=== PATIENT | female | born 1985 | race Two or more races ===

== ENCOUNTER 2024-02-01 16:42 | Inpatient (IN) | payer MEDICAID ==
[~2024-02-01] VITALS: Ht 152.4 cm; Wt 89.4 kg
[2024-02-01 16:49] VITALS: O2SAT 99
[2024-02-01] MEDS: VANCOMYCIN 1G PREMIX 200 ML IV ONE (17:15)
[2024-02-01 17:22] LABS: BASOPHILS % 0.3 % (0.0-2.0); EOSINOPHILS % 2.4 % (0.0-5.0); HEMATOCRIT. 34.1 % (36.0-48.0); HEMOGLOBIN. 11.4 g/dL (12.0-16.0); LYMPHOCYTES % 22.5 % (20.0-50.0); MEAN CORPUSCULAR HEMOGLOBIN 31.1 pg (28.0-32.0); MEAN CORPUSCULAR HGB CONC 33.5 g/dL (31.0-37.0); MEAN CORPUSCULAR VOLUME 92.9 fL (81.0-99.0); MEAN PLATELET VOLUME 7.7 fl (7.4-10.4); MONOCYTES % 6.6 % (2.0-8.0); NEUTROPHILS % 68.2 % (40.0-76.0); PLATELET 409 x1000/uL (130-400); RED BLOOD CELL COUNT 3.67 mill/uL (4.2-5.4); RED CELL DISTRIBUTION WIDTH 13.1 % (11.6-14.6); WHITE BLOOD COUNT 7.6 x1000/uL (4.5-11.0)
[2024-02-01 17:35] LABS: PROTHROMBIN TIME 11.1 sec (9.6-11.0)
[2024-02-01 17:39] LABS: ALANINE AMINOTRANSFERASE 42 IU/L (10-49); ASPARTATE AMINOTRANSFERASE 20 IU/L (<34); BILIRUBIN TOTAL 0.3 mg/dL (0.1-1.0); CALCIUM 8.6 mg/dL (8.7-10.4); CARBON DIOXIDE 27 mEq/L (21-32); CHLORIDE 103 mEq/L (98-107); CREATININE 0.5 mg/dL (0.6-1.0); GLUCOSE 99 mg/dL (70-105); POTASSIUM 3.3 mEq/L (3.5-5.1); PROTEIN TOTAL 7.5 g/dL (6.0-8.3); SODIUM 138 mEq/L (136-145); UREA NITROGEN BLOOD 9 mg/dL (9-23)
[2024-02-01] MEDS: SODIUM CHLORIDE 0.9% 1000ML BAG (SEPSIS BOLUS) IV ONE (19:07)
[2024-02-01] MEDS: CEFTRIAXONE 1GM/50ML 50 ML IV ONE (19:08)
[2024-02-01] MEDS ORDERED: CLONIDINE 0.1MG TABLET PO PRN (23:00)
[2024-02-01] MEDS: POTASSIUM CHLORIDE 20MEQ TABLET SR PO NR (23:00)
[2024-02-01] MEDS ORDERED: ACETAMINOPHEN 325MG TABLET PO PRN (23:00)
[2024-02-01] MEDS ORDERED: ZOLPIDEM TARTRATE 5MG TABLET PO PRN (23:00)
[2024-02-02] MEDS: ACETAMINOPHEN 325MG TABLET PO PRN (03:09)
[2024-02-02] MEDS: ENOXAPARIN 30MG/0.3ML SYR SUBCUT SCH (09:00)
[2024-02-02 12:00] VITALS: BP 125/62; PULSE 82; RESP 18; TEMP 97
[2024-02-02 16:49] LABS: CLARITY URINE TURBID (CLEAR); COLOR URINE YELLOW (YELLOW); GLUCOSE URINE NEGATIVE (NEGATIVE); KETONES URINE NEGATIVE (NEGATIVE); LEUKOCYTE ESTERASE URINE NEGATIVE (NEGATIVE); NITRITE URINE NEGATIVE (NEGATIVE); OCCULT BLOOD URINE NEGATIVE (NEGATIVE); PROTEIN URINE NEGATIVE (NEGATIVE); SPECIFIC GRAVITY URINE 1.018 (1.005-1.030)
[2024-02-02 16:57] LABS: *AMPHETAMINES SCREEN URINE PRESUMPTIVE POSITIVE (NEGATIVE); *BARBITURATES SCREEN URINE NEGATIVE (NEGATIVE); *BENZODIAZEPINES SCREEN URINE NEGATIVE (NEGATIVE); *COCAINE SCREEN URINE NEGATIVE (NEGATIVE); CANNABINOID URINE SCREEN PRESUMPTIVE POSITIVE (NEGATIVE); ECSTASY MDMA SCREEN URINE NEGATIVE (NEGATIVE); METHADONE URINE SCREEN Neg (NEGATIVE); OPIATES URINE SCREEN NEGATIVE (NEGATIVE); PHENCYCLIDINE URINE SCREEN NEGATIVE (NEGATIVE)
[2024-02-02 17:32] LABS: SQUAMOUS EPITHELIAL CELL URINE FEW /lpf (RARE/1+)
[2024-02-02 17:33] LABS: RBC URINE NONE SEEN /hpf (0-2); WBC URINE 0-2 /hpf (0-2)
[2024-02-02 17:34] LABS: AMORPHOUS SEDIMENT URINE 3+ /lpf; BACTERIA URINE 1+
[2024-02-02 20:00] VITALS: BP 153/52; PULSE 92; RESP 20; TEMP 97.5
[2024-02-02] MEDS: FAMOTIDINE 20MG TABLET PO SCH (20:15)
[2024-02-02] MEDS: IBUPROFEN 600MG TABLET PO PRN (20:25)
[2024-02-02] MEDS: AMOXICILLIN/POTASSIUM CLAVULANATE 875/125MG TAB PO SCH (21:12)
[2024-02-02] MEDS: SULFAMETHOXAZOLE/TRIMETHOPRIM 800/160MG TABLET PO SCH (21:12)
[2024-02-03] VITALS: BP 104/35; PULSE 85; RESP 17; TEMP 98.1
[2024-02-03 04:00] VITALS: BP 119/45; PULSE 88; RESP 18; TEMP 97.8
[2024-02-03 08:00] VITALS: BP 122/78; PULSE 85; RESP 18; TEMP 98
[2024-02-03] MEDS: SODIUM HYPOCHLORITE SOLUTION (0.5%)FULL STRENGTH TOP SCH (09:00)
[2024-02-03 12:00] VITALS: BP 124/78; PULSE 82; RESP 18; TEMP 98.2
[2024-02-03 16:00] VITALS: BP 120/76; PULSE 78; RESP 19; TEMP 98
[2024-02-03 20:00] VITALS: BP 130/65; PULSE 81; RESP 19; TEMP 97.5
[2024-02-04] VITALS: BP 115/65; PULSE 95; RESP 19; TEMP 97.4
[2024-02-04 04:00] VITALS: BP 112/59; PULSE 69; RESP 18; TEMP 96.6
[2024-02-04 08:00] VITALS: BP 108/51; PULSE 72; RESP 17; TEMP 97.7
[2024-02-04 12:00] VITALS: BP 120/73; PULSE 70; RESP 18; TEMP 99.1
[2024-02-04 16:00] VITALS: BP_SYST 101; BP_SYST 92; BP_DIAS 41; BP_DIAS 45; PULSE 80; PULSE 96; RESP 20; TEMP 101.9
[2024-02-04] MEDS: RISPERIDONE 1MG TABLET PO SCH (21:27)
[2024-02-05 04:00] VITALS: BP 113/59; PULSE 72; RESP 18; TEMP 98.6
[2024-02-05 08:00] VITALS: BP 105/54; PULSE 75; RESP 18; TEMP 97.3
[2024-02-05 12:00] VITALS: BP 94/44; PULSE 77; RESP 19; TEMP 97.5
[2024-02-05 16:00] VITALS: BP 100/49; PULSE 76; RESP 19; TEMP 97.7
[2024-02-05 20:00] VITALS: BP 107/53; PULSE 80; RESP 18; TEMP 96.2
[2024-02-06] VITALS: BP 118/62; PULSE 74; RESP 18; TEMP 97.8
[2024-02-06 04:00] VITALS: BP 121/70; PULSE 78; RESP 18; TEMP 97.7
[2024-02-06 08:00] VITALS: BP 108/50; PULSE 75; RESP 19; TEMP 97.7
[2024-02-06 12:00] VITALS: BP 116/63; PULSE 82; RESP 20; TEMP 97.8
[2024-02-06 16:00] VITALS: BP 123/67; PULSE 98; RESP 20; TEMP 97.9
[2024-02-06] MEDS: FLUCONAZOLE 150MG TABLET PO NR (18:54)
[2024-02-06 20:00] VITALS: BP 97/37; PULSE 75; RESP 18; TEMP 97.5
[2024-02-07] VITALS: BP 98/36; PULSE 57; RESP 18; TEMP 97.7
[2024-02-07 04:00] VITALS: BP 102/54; PULSE 84; RESP 18; TEMP 98.7
[2024-02-07 08:00] VITALS: BP 117/71; PULSE 93; RESP 19; TEMP 97.7
[2024-02-07 12:00] VITALS: BP 112/50; PULSE 77; RESP 17; TEMP 97.5
[2024-02-07 16:00] VITALS: BP 100/40; PULSE 99; RESP 19; TEMP 97.5
[2024-02-07] MEDS: LEVOFLOXACIN 250MG TABLET PO SCH (18:44)
[2024-02-07 20:00] VITALS: BP 108/58; PULSE 78; RESP 18; TEMP 98.1
[2024-02-08] VITALS: BP 100/53; PULSE 88; RESP 19; TEMP 96.4
[2024-02-08 04:00] VITALS: BP 96/50; PULSE 70; RESP 18; TEMP 98.1
[2024-02-08 08:00] VITALS: BP 102/50; PULSE 67; RESP 18; TEMP 96.4
[2024-02-08 12:00] VITALS: BP 109/66; PULSE 84; RESP 20; TEMP 96.6
[2024-02-08 16:00] VITALS: BP 113/55; PULSE 77; RESP 19; TEMP 97.7
[2024-02-08 20:00] VITALS: BP 107/54; PULSE 78; RESP 18; TEMP 96.4
[2024-02-09 04:00] VITALS: BP 103/42; PULSE 70; RESP 18; TEMP 97.7
[2024-02-09 08:00] VITALS: BP 91/31; PULSE 74; RESP 17; TEMP 98.1
[2024-02-09 12:00] VITALS: BP 81/45; PULSE 80; RESP 18; TEMP 98.1
[2024-02-09 16:00] VITALS: BP 91/41; PULSE 80; RESP 19; TEMP 97.7
[2024-02-09 20:00] VITALS: BP 111/53; PULSE 81; RESP 18; TEMP 96.4
[2024-02-10 04:00] VITALS: BP 107/51; PULSE 68; RESP 17; TEMP 96.2
[2024-02-10 08:00] VITALS: BP 90/39; PULSE 81; RESP 18; TEMP 96.9
[2024-02-10 12:00] VITALS: BP 94/56; PULSE 101; RESP 19; TEMP 97.6
[2024-02-10 16:00] VITALS: BP 91/47; PULSE 94; RESP 18; TEMP 97.3
[2024-02-10 20:00] VITALS: BP 92/43; PULSE 72; RESP 17; TEMP 97
[2024-02-11 04:00] VITALS: BP 94/35; PULSE 72; RESP 17; TEMP 96.9
[2024-02-11 08:00] VITALS: BP 80/50; PULSE 87; RESP 19; TEMP 98.3
[2024-02-11 12:00] VITALS: BP 90/52; PULSE 78; RESP 18; TEMP 98.1
[2024-02-11 16:00] VITALS: BP 96/54; PULSE 78; RESP 19; TEMP 97.2
[2024-02-11 20:00] VITALS: BP 85/36; PULSE 83; RESP 18; TEMP 96.7
[2024-02-12] VITALS: BP 85/43; PULSE 71; RESP 18; TEMP 97.5
[2024-02-12 08:00] VITALS: BP 110/50; PULSE 70; RESP 17; TEMP 97.6
[2024-02-12 12:00] VITALS: BP 107/51; PULSE 78; RESP 18; TEMP 98.1
[2024-02-12 16:00] VITALS: BP 108/43; PULSE 78; RESP 18; TEMP 97.8
[2024-02-12 20:00] VITALS: BP 88/41; PULSE 82; RESP 20; TEMP 97.2
[2024-02-13] VITALS: BP 89/40; PULSE 56; RESP 18; TEMP 98.2
[2024-02-13 04:00] VITALS: BP 103/50; PULSE 85; RESP 18; TEMP 97.5
[2024-02-13 07:00] LABS: BASOPHILS % 0.8 % (0.0-2.0); EOSINOPHILS % 4.4 % (0.0-5.0); HEMATOCRIT. 35.7 % (36.0-48.0); LYMPHOCYTES % 41.3 % (20.0-50.0); MEAN CORPUSCULAR HEMOGLOBIN 31.3 pg (28.0-32.0); MEAN CORPUSCULAR HGB CONC 33.5 g/dL (31.0-37.0); MEAN CORPUSCULAR VOLUME 93.3 fL (81.0-99.0); MEAN PLATELET VOLUME 9.5 fl (7.4-10.4); MONOCYTES % 8.9 % (2.0-8.0); NEUTROPHILS % 44.6 % (40.0-76.0); PLATELET 256 x1000/uL (130-400); RED BLOOD CELL COUNT 3.83 mill/uL (4.2-5.4); RED CELL DISTRIBUTION WIDTH 13.3 % (11.6-14.6); WHITE BLOOD COUNT 5.1 x1000/uL (4.5-11.0)
[2024-02-13 07:23] LABS: CALCIUM 8.8 mg/dL (8.7-10.4); CARBON DIOXIDE 26 mEq/L (21-32); CHLORIDE 104 mEq/L (98-107); CREATININE 0.6 mg/dL (0.6-1.0); GLUCOSE 97 mg/dL (70-105); POTASSIUM 4.1 mEq/L (3.5-5.1); SODIUM 135 mEq/L (136-145); UREA NITROGEN BLOOD 13 mg/dL (9-23)
[2024-02-13 08:00] VITALS: BP 80/31; PULSE 81; RESP 20; TEMP 97.9
[2024-02-13 12:00] VITALS: BP 119/41; PULSE 72; RESP 20; TEMP 97.1
[2024-02-13] MEDS: MAGNESIUM OXIDE 400MG TABLET PO SCH (12:03)
[2024-02-13 16:00] VITALS: BP 104/52; PULSE 84; RESP 20; TEMP 97.9
[2024-02-13 20:00] VITALS: BP 106/53; PULSE 86; RESP 18; TEMP 97.7
[2024-02-14] VITALS: BP 98/35; PULSE 86; RESP 19; TEMP 97.3
[2024-02-14 04:00] VITALS: BP 122/33; PULSE 81; RESP 18; TEMP 97.9
[2024-02-14 08:00] VITALS: BP 121/82; PULSE 88; RESP 18; TEMP 97.7
[2024-02-14 12:00] VITALS: BP 95/71; PULSE 87; RESP 19; TEMP 97.9
[2024-02-14 16:00] VITALS: BP 98/64; PULSE 82; RESP 19; TEMP 97.8
[2024-02-14 21:59] VITALS: BP 90/40; PULSE 62; RESP 18; TEMP 95.9
[2024-02-15] VITALS: BP 99/66; PULSE 69; RESP 18; TEMP 96.5
[2024-02-15 04:00] VITALS: BP 109/58; PULSE 18; RESP 18; TEMP 95.7
[2024-02-15 08:00] VITALS: BP 97/45; PULSE 87; RESP 20; TEMP 97.1
[2024-02-15 12:00] VITALS: BP 98/52; PULSE 84; RESP 20; TEMP 97.1
[2024-02-15 16:00] VITALS: BP 96/60; PULSE 85; RESP 21; TEMP 97.2
[2024-02-15 20:00] VITALS: BP 92/31; PULSE 79; RESP 18; TEMP 97.7
[2024-02-16] VITALS: BP 83/31; PULSE 65; RESP 18; TEMP 98.7
[2024-02-16 04:00] VITALS: BP 87/38; PULSE 68; RESP 18; TEMP 97.8
[2024-02-16 08:00] VITALS: BP 111/49; PULSE 74; RESP 21; TEMP 97.2
[2024-02-16 12:00] VITALS: BP 110/52; PULSE 70; RESP 20; TEMP 97.4
[2024-02-16 16:00] VITALS: BP 115/62; PULSE 80; RESP 21; TEMP 97.2
[2024-02-16 20:00] VITALS: BP 97/35; PULSE 92; RESP 18; TEMP 97.7
[2024-02-17] VITALS: BP 94/39; PULSE 86; RESP 18; TEMP 97.8
[2024-02-17 04:00] VITALS: BP 97/49; PULSE 88; RESP 18; TEMP 98.7
[2024-02-17 08:00] VITALS: BP 92/30; PULSE 77; RESP 20; TEMP 99.3
[2024-02-17 12:00] VITALS: BP 123/59; PULSE 74; RESP 19; TEMP 98.1
[2024-02-17 16:00] VITALS: BP 105/48; PULSE 72; RESP 20; TEMP 98.6
[2024-02-18 08:00] VITALS: BP 99/46; PULSE 81; RESP 20; TEMP 98.6
[2024-02-18 12:00] VITALS: BP 103/50; PULSE 77; RESP 18; TEMP 98.9
[2024-02-18 16:00] VITALS: BP 89/33; PULSE 76; RESP 17; TEMP 98.6
[2024-02-18 20:00] VITALS: BP 106/53; PULSE 93; RESP 16; TEMP 98
[2024-02-19] VITALS: BP 125/53; PULSE 60; RESP 18; TEMP 97.7
[2024-02-19 04:00] VITALS: BP 91/51; PULSE 80; RESP 17; TEMP 98.5
[2024-02-19 08:00] VITALS: BP 102/43; PULSE 76; RESP 18; TEMP 98
[2024-02-19 12:00] VITALS: BP 102/44; PULSE 60; RESP 18; TEMP 97.7
[2024-02-19 16:00] VITALS: BP 90/45; PULSE 60; RESP 19; TEMP 97.7
[2024-02-19 20:00] VITALS: BP 85/42; PULSE 77; RESP 16; TEMP 97
[2024-02-20] VITALS: BP 98/50; PULSE 78; RESP 19; TEMP 99.3
[2024-02-20 04:00] VITALS: BP 113/68; PULSE 72; RESP 20; TEMP 98.5
[2024-02-20 08:00] VITALS: BP 107/48; PULSE 70; RESP 18; TEMP 95.7
[2024-02-20 12:00] VITALS: BP 112/78; PULSE 77; RESP 19; TEMP 97.8
== END 2024-02-20 15:23 | disposition home health service (06) | DRG 721 ==
LOC: ER 16:42 → EDBEDREQ 19:02 → EDBEDREQTM 19:02 → 6EST 02-02 11:31
PROVIDERS: ADMIT Internal Medicine; ATTEND Internal Medicine
DX: T81.49XA Infection following a procedure, other surgical site, initial encounter (principal); L03.115 Cellulitis of right lower limb; L97.812 Non-pressure chronic ulcer of other part of right lower leg with fat layer exposed; D64.9 Anemia, unspecified; E66.9 Obesity, unspecified; S82.831A Other fracture of upper and lower end of right fibula, initial encounter for closed fracture; E87.6 Hypokalemia; Z59.00 Homelessness unspecified; Z68.36 Body mass index [BMI] 36.0-36.9, adult; S82.891D Other fracture of right lower leg, subsequent encounter for closed fracture with routine healing; Z20.822 Contact with and (suspected) exposure to COVID-19; N76.0 Acute vaginitis; F31.9 Bipolar disorder, unspecified; F41.9 Anxiety disorder, unspecified; I10 Essential (primary) hypertension; Z79.899 Other long term (current) drug therapy; Z91.199 Patient's noncompliance with other medical treatment and regimen due to unspecified reason
CPT/HCPCS: 36415; 73600; 73620; 80048; 80053; 80305; 81003; 83605; 83735; 84100; 84145; 85025; 86592; 87070; 87077; 87106; 87186; 87426; 97110; 97116; 97161; 97166; 97530; 97535; 99285; J0696; J1650; J7030